=== PATIENT | male | born 1945 | race Caucasian/White ===

== ENCOUNTER 2016-08-22 21:07 | Emergency (ER) | payer OTHER ==
--- NOTE | 2016-08-22 22:19 | ER Document Report ---
ED General - General Chief Complaint: Fall Stated Complaint: FELL/HIP AND SHOULDER PAIN Time Seen by Provider: 08/22/16 22:03 Mode of Arrival: Ambulatory Information source: Patient, Relative TRAVEL OUTSIDE OF THE [place] IN LAST 30 DAYS: No - HPI Notes: Pt uses an electric w/c and has a walker got up yesterday and did not use his walker , lost his balance and fell , c/o rt shoulder pain and rt hip pain, also c/o some lower back pain off and on for about a wk , hx of back problems., and cva with some lt sided weakness, skin w/d pink a/ox3 no distress. The family states that this is typical for the patient to have chronic back pain and patient on my current questioning denies having any pain to the right shoulder and right hip. There was no report of any head injury. He denies any neck pain. There is no new weakness. On questioning, the family states that the actual reason the patient came in was Related to a cough that started today and they noticed a small amount of blood in the sputum one time when he coughed. There is no tuberculosis exposures. The patient quit smoking approximately 30 years ago. The patient denies any fever or chills or chest pain or difficulty breathing. The patient is on Plavix and aspirin. There is no new weakness. There is some mild chronic dementia with memory loss according to the family. Past Medical History - General Information source: Patient - Social History Smoking Status: Former Smoker Chew tobacco use (# tins/day): No - former user Frequency of alcohol use: Occasional Drug Abuse: None Lives with: Family Family History: Reviewed & Not Pertinent Patient has suicidal ideation: No Patient has homicidal ideation: No - Past Medical History Cardiac Medical History: Reports: Hx Hypercholesterolemia, Hx Hypertension Renal/ Medical History: Denies: Hx Peritoneal Dialysis Musculoskeltal Medical History: Reports Hx Arthritis Past Surgical History: Reports: Hx Cardiac Catheterization - stents, Hx Cardiac Surgery - carodidenderoectomy - Immunizations Hx Diphtheria, Pertussis, Tetanus Vaccination: Yes Review of Systems - Review of Systems Notes: REVIEW OF SYSTEMS: CONSTITUTIONAL : Denies fever, chills, or sweats. Denies recent illness. EENT: Denies eye, ear, throat, or mouth pain or symptoms. Denies nasal or sinus congestion or discharge. Denies throat, tongue, or mouth swelling or difficulty swallowing. CARDIOVASCULAR: Denies chest pain. Denies palpitations or racing or irregular heart beat. Denies ankle edema. RESPIRATORY: Denies shortness of breath, difficulty breathing, or wheezing. GASTROINTESTINAL: Denies abdominal pain or distention. Denies nausea, vomiting , or diarrhea. Denies blood in vomitus, stools, or per rectum. Denies black, tarry stools. Denies constipation. GENITOURINARY: Denies difficulty urinating, painful urination, burning, frequency, blood in urine, or discharge. MUSCULOSKELETAL: Denies patient reports chronic back pain which is unchanged. Neck pain or stiffness. Denies joint pain or swelling. SKIN: Denies rash, lesions or sores. HEMATOLOGIC : Denies easy bruising or bleeding. LYMPHATIC: Denies swollen, enlarged glands. NEUROLOGICAL: Denies confusion or altered mental status. Denies passing out or loss of consciousness. Denies dizziness or lightheadedness. Denies headache. Denies weakness or paralysis or loss of use of either side. Denies problems with gait or speech. Denies sensory loss, numbness, or tingling. Denies seizures. PSYCHIATRIC: Denies anxiety or stress. Denies depression, suicidal ideation, or homicidal ideation. ALL OTHER SYSTEMS REVIEWED AND NEGATIVE. Dictation was performed using [email or web address] voice recognition software Physical Exam - Vital signs Vitals: Temp Pulse Resp BP Pulse Ox 97.6 F 105 H 18 141/89 H 96 08/22/16 21:13 08/22/16 21:13 08/22/16 21:13 08/22/16 21:13 08/22/16 21:13 - Notes Notes: PHYSICAL EXAMINATION: GENERAL: Well-appearing, well-nourished and in no acute distress. HEAD: Atraumatic, normocephalic. EYES: Pupils equal round and reactive to light, extraocular movements intact, sclera anicteric, conjunctiva are normal. ENT: Nares patent, oropharynx clear without exudates. Moist mucous membranes. NECK: Normal range of motion, supple without lymphadenopathy LUNGS: Breath sounds clear to auscultation bilaterally and equal. No wheezes rales. Scant rhonchi that clear with cough. HEART: Regular rate and rhythm without murmurs ABDOMEN: Soft, nontender, nondistended abdomen. No guarding, no rebound. No masses appreciated. Musculoskeletal: Normal range of motion, no pitting or edema. No cyanosis. Unable to reproduce any specific tenderness through the shoulder or hip on the right or left. Patient does have some mild chronic lower back pain which he states is unchanged. There is a reasonably good range of motion. NEUROLOGICAL: Cranial nerves grossly intact. Normal speech, normal gait. Normal sensory, unable to appreciate any significant unilateral weakness.. Alert and oriented 3. PSYCH: Normal mood, normal affect. SKIN: Warm, Dry, normal turgor, no rashes noted. 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 Family states that he scheduled within the week to have a surgical resection on this area due to concern for a skin cancer. Course - Re-evaluation Re-evalutation: No thrombocytopenia or anemia or renal insufficiency or electrolyte imbalance or obvious pneumonia or obvious carcinomatous process. No clinical suggestion for Pulmonary embolus given the cough. We will stop the patient's Plavix for 5 days, and have him follow-up with his regular practitioner. Would consider bronchoscopy if hemoptysis continues. There is no obvious risk factor or radiographic evidence for tuberculosis, and family thinks she has had previous testing which was negative. We will cover the patient with amoxicillin for possible infectious etiology. 08/23/16 00:47 - Vital Signs Vital signs: Temp Pulse Resp BP Pulse Ox 97.6 F 105 H 18 141/89 H 96 08/22/16 21:13 08/22/16 21:13 08/22/16 21:13 08/22/16 21:13 08/22/16 21:13 - Laboratory Result Diagrams: 08/22/16 23:15 08/22/16 23:15 Laboratory results interpreted by me: 08/22/16 08/22/16 23:15 23:15 Hgb 12.9 L Monocytes % 13.3 H Glucose 131 H Discharge - Discharge Clinical Impression: Bronchitis, Hemoptysis Accidental fall Qualifiers: Encounter type: initial encounter Qualified Code(s): W19.XXXA - Unspecified fall, initial encounter Condition: Stable Disposition: HOME, SELF-CARE Instructions: Bronchitis ([facility]), Hemoptysis ([facility]) Additional Instructions: If you continue to cough up blood, then you may need a bronchoscopy and further evaluation. Return to the ED in case of difficulty breathing, high fever, worsening cough. Use a walker at all times when you are walking. Prescriptions: Amoxicillin 1 tab PO TID #30 tab
--- NOTE | 2016-08-22 22:57 | RADIOLOGY REPORT (SQ) ---
EXAM DESCRIPTION: CHEST PA/LAT COMPLETED DATE/TIME: 08/22/2016 10:40 pm REASON FOR STUDY: cough, hemoptysis COMPARISON: None. NUMBER OF VIEWS: Two view. TECHNIQUE: Frontal and lateral radiographic views of the chest acquired. LIMITATIONS: None. FINDINGS: LUNGS AND PLEURA: Chronic scarring. No opacities, masses or pneumothorax. No pleural effu swapnil. Attenuated blood vessels and flattened víctor-diaphragms. MEDIASTINUM AND HILAR STRUCTURES: No masses. No contour abnormalities. HEART AND VASCULAR STRUCTURES: Heart normal in size and contour. No evidence for failure. BONES: No acute findings. HARDWARE: None in the chest. OTHER: No other significant finding. IMPRESSION: COPD. NO ACUTE RADIOGRAPHIC FINDING IN THE CHEST. TECHNICAL DOCUMENTATION: JOB ID: [id number] [employer]- All Rights Reserved
[2016-08-22 23:28] LABS: ABSOLUTE BASOPHILS # (AUTO) 0.1 10^3/uL (0.0-0.2); ABSOLUTE EOSINOPHILS # (AUTO) 0.3 10^3/uL (0.0-0.6); ABSOLUTE LYMPHOCYTES (AUTO) 0.9 10^3/uL (0.5-4.7); ABSOLUTE MONOCYTES (AUTO) 0.8 10^3/uL (0.1-1.4); ABSOLUTE NEUT (AUTO) 4.1 10^3/uL (1.7-8.2); BASOPHILS % (AUTO) 0.8 % (0-2); HEMATOCRIT 39.4 % (37.9-51.0); HEMOGLOBIN 12.9 g/dL (13.5-17.0); HGB HCT DIFFERENCE -0.7; LYMPHOCYTES % (AUTO) 13.9 % (13-45); MEAN CORPUSCULAR HGB CONC 32.9 g/dL (32.0-36.0); MEAN CORPUSCULAR VOLUME 88 fl (80-97); MONOCYTES % (AUTO) 13.3 % (3-13); RED BLOOD COUNT 4.46 10^6/uL (4.35-5.55); RED CELL DISTRIBUTION WIDTH 13.5 % (11.5-14.0); WHITE BLOOD COUNT 6.2 10^3/uL (4.0-10.5)
[2016-08-22 23:38] LABS: PROTHROMBIN TIME 13.3 SEC (11.4-15.4)
[2016-08-22 23:39] LABS: ALANINE AMINOTRANSFERASE 56 U/L (21-72); ALBUMIN 3.8 g/dL (3.5-5.0); ALKALINE PHOSPHATASE 101 U/L (38-126); ANION GAP 9 (5-19); ASPARTATE AMINO TRANSFERASE 41 U/L (17-59); BILIRUBIN,DIRECT 0.2 mg/dL (0.0-0.4); BILIRUBIN,TOTAL 0.7 mg/dL (0.2-1.3); BLOOD UREA NITROGEN 11 mg/dL (7-20); CALCIUM 9.1 mg/dL (8.4-10.2); CARBON DIOXIDE 27 mmol/L (22-30); CHLORIDE 103 mmol/L (98-107); CREATININE RESULT 0.97 mg/dL (0.52-1.25); GLUCOSE 131 mg/dL (75-110); POTASSIUM 3.7 mmol/L (3.6-5.0); SODIUM 139.2 mmol/L (137-145); TOTAL PROTEIN 6.7 g/dL (6.3-8.2)
[2016-08-23] MEDS ORDERED: AMOXICILLIN TRIHYDRATE 500 MG CAPSULE PO ONE (00:40)
[2016-08-23 00:55] VITALS: BP 140/89
== END 2016-08-23 00:50 | disposition home or self-care (01) ==
LOC: ER 21:07
DX: Z04.3 Encounter for examination and observation following other accident (principal); W19.XXXA Unspecified fall, initial encounter; J40 Bronchitis, not specified as acute or chronic; R04.2 Hemoptysis; M54.5 Low back pain; G89.29 Other chronic pain; L98.9 Disorder of the skin and subcutaneous tissue, unspecified; D17.1 Benign lipomatous neoplasm of skin and subcutaneous tissue of trunk; I69.354 Hemiplegia and hemiparesis following cerebral infarction affecting left non-dominant side; F03.90 Unspecified dementia, unspecified severity, without behavioral disturbance, psychotic disturbance, mood disturbance, and anxiety; I10 Essential (primary) hypertension; Z98.61 Coronary angioplasty status
CPT/HCPCS: 36415; 71020; 80053; 85025; 85610; 99283